=== PATIENT | female | born 1965 | race Caucasian/White ===

== ENCOUNTER 2022-11-29 13:13 | Emergency (ER) | payer OTHER, SELFPAY ==
[2022-11-29] MEDS ORDERED: Magnesium 2 GM/50 ML BAG (IN WATER) ONE (13:44)
[2022-11-29] MEDS ORDERED: Dexamethasone 10 MG/ML VIAL ONE (13:44)
[2022-11-29] MEDS ORDERED: Ipratropium Bromide 2.5 ml Neb ONE (13:50)
[2022-11-29 14:29] LABS: BHCG - Serum Negative (NEGATIVE); Pregs Control Bar Appear? YES (CONTROL BAR)
[2022-11-29 14:30] LABS: Pregs Control Background? CLEAR/WHITE (CLR/WHITE)
[2022-11-29 14:37] LABS: #Basophils 0.1 10x3/uL (0.0-0.2); #Monocytes 0.2 10x3/uL (0.0-1.1); #Neutrophils 4.7 10x3/uL (1.5-8.4); %Basophils 0.8 % (0.0-2.0); %Lymphocytes 17.2 % (18.0-47.0); %Monocytes 3.2 % (0.0-10.0); Hemoglobin 14.6 g/dL (12.0-15.5); Mean Corpuscular HGB CONC 33.4 g/dL (32.0-36.0); Mean Corpuscular Hemoglobin 28.7 pg (27.0-33.0); Mean Corpuscular Volume 85.9 fl (81.6-98.3); Mean Platelet Volume 10.7 fl (7.4-10.4); Platelet Count 197 10x3/uL (150-450); Red Blood Cell (RBC) Count 5.09 10x6/uL (3.90-5.03); White Blood Cell (WBC) Count 6.3 10x3/uL (3.5-10.5)
[2022-11-29 14:41] LABS: ALT (SGPT) 53 U/L (8-55); AST (SGOT) 37 U/L (5-34); Albumin 4.4 g/dL (3.5-5.0); Alkaline Phosphatase 69 U/L (40-110); Anion Gap 16 mmol/L (10-20); BUN (Urea Nitrogen) 17 mg/dL (9.8-20.1); Bilirubin, Total 0.3 mg/dL (0.2-1.2); Calc. Creatinine Clearance 0 mL/min (70-130); Calcium 9.6 mg/dL (7.8-10.44); Carbon Dioxide 29 mmol/L (22-29); Chloride 98 mmol/L (98-107); Estimated GFR 56; Globulin 2.6 g/dL (2.4-3.5); Glucose 303 mg/dL (70-105); Lipase 16 U/L (8-78); Potassium 4.2 mmol/L (3.5-5.1); Sodium 139 mmol/L (136-145)
[2022-11-29] MEDS ORDERED: Iopamidol 370 76% 100 ML VIAL ONE (14:46)
[2022-11-29 15:01] LABS: SARS-CoV-2 NAA Rapid Test DETECTED (NotDetected)
[2022-11-29 17:28] LABS: Lactic Acid 3.5 mmol/L (0.5-2.2)
== END 2022-11-29 18:15 | disposition home or self-care (01) ==
LOC: CSHERS 13:13
DX: U07.1 COVID-19 (principal); J44.1 Chronic obstructive pulmonary disease with (acute) exacerbation; E78.00 Pure hypercholesterolemia, unspecified; F17.210 Nicotine dependence, cigarettes, uncomplicated
CPT/HCPCS: 36415; 71275; 80053; 83605; 83690; 84484; 84703; 85025; 93005; 94640; 94760; 96365; 96375; J1100; J3475; J7611

== ENCOUNTER 2022-12-05 13:38 | Emergency (ER) | payer SELFPAY | END 2022-12-05 15:04 | disposition left against medical advice (07) | LOC: CSHERS 13:38 | DX: Z53.21 Procedure and treatment not carried out due to patient leaving prior to being seen by health care provider (principal) ==